=== PATIENT | female | born 1980 | race Caucasian/White ===

== ENCOUNTER 2016-10-14 00:17 | Inpatient (IN) | payer BC ==
[~2016-10-14] VITALS: Ht 167.6 cm; Wt 70.5 kg
[2016-10-14] VITALS (15 sets, daily range): BP systolic 104–129; BP diastolic 59–77; PULSE 75–111; TEMP 97.1–98.2
[2016-10-14] MEDS ORDERED: IRON325 MG PO (01:05)
[2016-10-14] MEDS ORDERED: PRENATAL (01:05)
[2016-10-14 02:19] LABS: BASO % 0.3 % (0.0-2.0); EOS # 0.1 (0.0-0.7); EOS % 0.9 % (0-4.0); GRAN # 7.3 (1.4-6.5); GRAN % 68.7 % (42.2-75.2); LYMPH # 2.2 (1.2-3.4); LYMPH % 20.9 % (20.0-51.0); MEAN CELL VOLUME 84 fl (80.0-100.0); MEAN CORPUSCULAR HGB CONC 33 g/dl (33.0-37.0); MEAN PLATELET VOLUME 9.2 fl (7.4-10.4); MONO # 0.8 (0.1-0.6); MONO % 7.3 % (1.7-9.3); PLATELET COUNT 292 K/mm3 (130-400); RED BLOOD COUNT 3.99 M/mm3 (4.10-5.30); REDCELL DISTRIBUTION WIDTH-CV 14.8 % (11.5-14.5); WHITE BLOOD COUNT 10.5 K/mm3 (4.8-10.8)
[2016-10-14 02:20] LABS: HEMATOCRIT 33.3 % (37.0-47.0); MEAN CORPUSCULAR HEMOGLOBIN 28 pg (27.0-31.0)
[2016-10-15 00:45] VITALS: BP 109/67; PULSE 88; TEMP 98.2
[2016-10-15 07:55] VITALS: BP 112/73; PULSE 78; TEMP 97.8
[2016-10-15] MEDS ORDERED: IBU600 MG PO (09:46)
== END 2016-10-15 13:00 | disposition home or self-care (01) | DRG 775 ==
LOC: LDRO 00:17 → LDR 02:54 → OB 02:54 → LDRO 10-19 11:25
PROVIDERS: Student in an Organized Health Care Education/Training Program
PROC: 10E0XZZ Delivery of Products of Conception, External Approach (ICD-10-PCS; principal; 2016-10-14)
DX: O69.81X0 Labor and delivery complicated by cord around neck, without compression, not applicable or unspecified (principal); O99.02 Anemia complicating childbirth; D64.9 Anemia, unspecified; Z3A.39 39 weeks gestation of pregnancy; Z37.0 Single live birth
CPT/HCPCS: J2590

== ENCOUNTER → 2021-12-26 | Outpatient (CLI) | payer BC ==
[~2021-12-26] MED LIST: IBU600 MG PO; IRON325 MG PO; PRENATAL
== END ==
LOC: MC.RAD 08:06
DX: Z12.31 Encounter for screening mammogram for malignant neoplasm of breast (principal)

== ENCOUNTER → 2024-03-06 | Outpatient (CLI) | payer BC | LOC: MC.RAD 09:07 | DX: Z12.31 Encounter for screening mammogram for malignant neoplasm of breast (principal) ==